=== PATIENT | female | born 1965 | race Caucasian/White ===

== ENCOUNTER 2018-07-11 08:06 | Observation (INO) | payer OTHER ==
[2018-07-11] MEDS ORDERED: ceFAZolin 2 GM/DEXTROSE 100 ML IV ONE (08:16)
[2018-07-11] MEDS ORDERED: PHENAZOPYRIDINE HCL 200 MG TAB PO ONE (08:16)
[2018-07-11] MEDS ORDERED: ACETAMINOPHEN 500 MG TAB PO ONE (08:16)
[2018-07-11] MEDS ORDERED: GABAPENTIN 300 MG CAP PO ONE (08:16)
[2018-07-11] MEDS ORDERED: LR 1,000 ML IV ONE (08:18)
--- NOTE | 2018-07-11 09:35 | PDHPUP ---
History & Physical Update H&P update statement: This history and physical update is based on an assessment of the patient which was completed after admission or registration (within 24 hours), but prior to the surgery/procedure. H&P update: H&P reviewed & patient examined, no change in patient's condition since H&P completed
[2018-07-11] MEDS ORDERED: BUPIVACAINE/EPI 0.5% 30 ML SDV ONE (09:48)
--- NOTE | 2018-07-11 09:52 | PDANEPAE ---
ANE Past Medical History - Cardiovascular History Hx Hypertension: No Hx Arrhythmias: No Hx Chest Pain: No Hx Coronary Artery / Peripheral Vascular Disease: No Hx CHF / Valvular Disease: No Hx Palpitations: No - Pulmonary History Hx COPD: No Hx Asthma/Reactive Airway Disease: No Hx Recent Upper Respiratory Infection: No Hx Oxygen in Use at Home: No Hx Sleep Apnea: No Sleep Apnea Screening Result - Last Documented: Negative - Neurologic History Hx Cerebrovascular Accident: No Hx Seizures: No Hx Dementia: No - Endocrine History Hx Diabetes: No - Renal History Hx Renal Disorders: Yes Renal History Comment: dribbling - Liver History Hx Hepatic Disorders: No - Neurological & Psychiatric Hx Hx Neurological and Psychiatric Disorders: No - Cancer History Hx Cancer: No - Congenital Disorder History Hx Congenital Disorders: No - GI History Hx Gastrointestinal Disorders: No - Other Health History Other Health History: wears glasses for reading and driving - Chronic Pain History Chronic Pain: Yes (left knee) - Surgical History Prior Surgeries: partial hysterectomy. breast surgery ANE Review of Systems Review of Systems: - Exercise capacity METS (RN): 4 METS ANE Patient History - Allergies Allergies/Adverse Reactions: Penicillins Allergy (Verified 07/05/18 10:26) Hives Sulfa (Sulfonamide Antibiotics) Allergy (Verified 07/05/18 10:26) Swelling/neck,face,throat - Home Medications Home Medications: Ascorbic Acid [Vitamin C 500 mg (*)] 500 mg PO DAILY 07/02/18 [Last Taken ] Hydrochlorothiazide [HCTZ (*)] 12.5 mg PO DAILY 07/02/18 [Last Taken 07/03/18] Ibuprofen [Motrin (*)] 200 mg PO DAILY PRN 07/02/18 [Last Taken 07/02/18] - NPO status NPO Since - Liquids (Date): 07/10/18 NPO Since - Liquids (Time): 21:00 NPO Since - Solids (Date): 07/10/18 NPO Since - Solids (Time): 21:00 - Smoking Hx Smoking Status: Former smoker - Family Anes Hx Family Hx Anesthesia Complications: none ANE Labs/Vital Signs - Vital Signs Blood Pressure: 141/96 Heart Rate: 64 Respiratory Rate: 16 O2 Sat (%): 95 Height: 157.48 cm Weight: 81.647 kg ANE Physical Exam - Airway Mallampati Score: Class 2 - ASA Status ASA Status: II ANE Anesthesia Plan Anesthesia Plan: general endotracheal anesthesia
[2018-07-11] MEDS ORDERED: MIDAZOLAM 2 MG/2 ML VIAL ONE (09:54)
[2018-07-11] MEDS ORDERED: PROPOFOL 200 MG/20 ML VIAL ONE (09:55)
[2018-07-11] MEDS ORDERED: fentaNYL 100 MCG/2 ML INJ ONE (09:55)
[2018-07-11] MEDS ORDERED: ROCURONIUM 50 MG/5 ML VIAL ONE ×2 (09:58→11:57)
[2018-07-11] MEDS ORDERED: METOCLOPRAMIDE 10 MG/2 ML VIAL ONE (09:58)
[2018-07-11] MEDS ORDERED: ONDANSETRON 4 MG/2 ML VIAL ONE (09:58)
[2018-07-11] MEDS ORDERED: SUGAMMADEX SODIUM 200 MG/2 ML VIAL IVP ONE (12:07)
--- NOTE | 2018-07-11 12:19 | POSTOPPROG ---
Post Op Note Date of Operation: 07/11/18 Surgeon: Mulugeta Cash Associate Counsel: Mansi Ibarra Anesthesiologist: Suzi Anesthesia: GET(General Endotracheal) Pre-op Diagnosis: Vaginal prolapse Post-op Diagnosis: Same Procedure: Robotic sacrocolpopexy, RSO, endo Findings: Uretrers function at end of case Inf/Abcess present in the surg proc area at time of surgery?: No EBL: Minimal Complications: None
[2018-07-11] MEDS ORDERED: ONDANSETRON 4 MG/2 ML VIAL IVP PRN (12:20)
[2018-07-11] MEDS ORDERED: HYDROmorphONE/DILAUDID 1 MG/ML INJ IVP PRN (12:20)
[2018-07-11] MEDS ORDERED: ONDANSETRON DISINTEGRATING 4 MG TAB PO PRN (12:20)
[2018-07-11] MEDS ORDERED: PROMETHAZINE HCL 25 MG/ML INJ IVP PRN ×2 (12:20→12:27)
[2018-07-11] MEDS ORDERED: fentaNYL 100 MCG/2 ML INJ IVP PRN (12:27)
[2018-07-11] MEDS ORDERED: LR 500 ML IV PRN (12:27)
[2018-07-11] MEDS ORDERED: DEXAMETHASONE 4 MG/ML VIAL IVP PRN (12:27)
[2018-07-11] MEDS ORDERED: NALOXONE HCL 0.4 MG/ML INJ IVP PRN (12:27)
[2018-07-11] MEDS ORDERED: ALBUTEROL 3 ML DEYVIAL IH PRN (12:27)
--- NOTE | 2018-07-11 12:28 | POSTANESTH ---
Post Anesthetic Evaluation Cardiovascular Status: Normal, Stable Respiratory Status: Normal, Stable Level of Consciousness/Mental Status: Can Participate in Eval Pain Control: Adequate, Prn Tx Ordered Nausea/Vomiting Control: Adequate, Prn Tx Ordered Complications Possibly Related to Anesthesia: None Noted
[2018-07-11] MEDS ORDERED: LR 1,000 ML IV SCH (12:30)
[2018-07-11] MEDS ORDERED: HYDROmorphONE/DILAUDID 2 MG/ML INJ ONE (12:44)
[2018-07-11] MEDS: HYDROmorphONE/DILAUDID 2 MG/ML INJ IVP PRN ×3 (12:51→13:29)
[2018-07-11] MEDS ORDERED: HYDROCODONE/APAP 5/325 TAB ONE (13:03)
[2018-07-11] MEDS: HYDROCODONE/APAP 5/325 TAB PO PRN ×2 (13:04→21:13)
--- NOTE | 2018-07-11 13:33 | GOP ---
DATE OF OPERATION: 07/11/2018 SURGEON: Mulugeta Cash MD [employer] DRIVER: Mansi Ibarra CFA ANESTHESIA: General. PREOPERATIVE DIAGNOSIS: 1. Cystocele. 2. Rectocele. 3. Vaginal vault prolapse. POSTOPERATIVE DIAGNOSIS: 1. Cystocele. 2. Rectocele. 3. Vaginal vault prolapse. 4. Endometriosis. 5. Right ovarian neoplasm. PROCEDURE PERFORMED: 1. Robotic-assisted laparoscopic sacrocolpopexy with mesh. 2. Repair of cystocele and rectocele. 3. Excision of endometriosis. 4. Right salpingo-oophorectomy. 5. Cystoscopy. 6. Right ureterolysis. FINDINGS: SPECIMENS: Right tube and ovary. ESTIMATED BLOOD LOSS: Scant. DESCRIPTION OF PROCEDURE: The patient was taken to the operating room where she was identified. General anesthesia was administered and found to be adequate. She was placed in the lithotomy position and prepared and draped in normal sterile fashion. A 1 cm infraumbilical incision was made with a scalpel. The Veress needle with CO2 gas flowing was advanced into the peritoneal cavity. The abdomen was then insufflated with carbon dioxide gas. The 12 mm trocar followed by the laparoscope were then inserted. The upper abdomen was unremarkable. Two lateral ports were placed on the right and 2 on the left under direct visualization. She was then placed in Trendelenburg position, and the da Buddy robot docked on the left side. The instruments were then brought into the abdominal cavity under direct visualization. The patient was noted to have a multicystic enlargement of the right ovary consistent with a serous cystadenoma. It was adhered to the pelvic sidewall overlying the right ureter. She had endometriosis in the posterior cul-de-sac as well as the right pelvic sidewall. To safely remove the ovary required a right ureterolysis. The peritoneum of the pelvic brim was incised. The ureter was gently dissected free and lateralized off the overlying peritoneum and ovary down to the bladder. Once this was accomplished, I was able to dissect the ovary free of the sidewall. The infundibulopelvic vessels were then cauterized and transected. The specimen was removed at the end of the case by enlarging the umbilical incision. A stent was placed in the vagina. The bladder was gently dissected off the anterior vaginal wall down to the level of bladder neck. The endometriosis was excised. The rectovaginal space was then entered, and the rectum dissected off the posterior vaginal wall down to the level of the perineal body. Measurements were then obtained and the mesh trimmed to size. The sigmoid colon was then retracted laterally. The peritoneum over the sacral promontory was incised, and the fat pad gently dissected off the anterior longitudinal ligament. The mesh was brought into the abdominal cavity. Three sutures of 4- 0 Weston-Prashant were used to attach the distal posterior mesh to the perineal body. Two additional rows of Weston-Prashant sutures were placed posteriorly. Three rows were placed anteriorly to suture the anterior mesh down to the level of the bladder neck and laterally to the paravaginal tissue. The stent was then removed. The sacral arm of the mesh was placed over the promontory and the tension adjusted. I then scrubbed back into the case to examine the vagina. The tension was further adjusted to resolve the cystocele and rectocele without undue tension on the vagina. Two sutures of 2-0 Weston-Prashant were used to attach the sacral arm of the mesh to the anterior longitudinal ligament at the level of the upper 1st sacral vertebral body. The excess mesh was then trimmed. 3-0 V -Loc 90 suture was used to close the peritoneum over the entire mesh. The robot was then undocked. The specimen was removed through the umbilicus. The fascia was closed with 0 Vicryl, skin with 4-0 Monocryl. Cystoscopy was then performed. Both ureters had vigorous jets of urine. There was no evidence of bladder nor urethral injury seen. No mesh nor suture was seen within the bladder or urethra. No obvious pathology was seen. A transverse incision was then made along the perineal body. The posterior vaginal epithelium was undermined with the Metzenbaum scissors and incised sagittally. The epithelium was then gently dissected off the underlying rectovaginal connective tissue. The connective tissue was plicated in the midline with 0 Vicryl. The rectovaginal septum was reattached to the perineal body with 0 Vicryl suture. The excess epithelium was then trimmed and closed with a running 2-0 Vicryl suture. Vaginal packing was then placed. Anesthesia was reversed. The patient taken the PACU awake, in stable condition. COMPLICATIONS: None. DISPOSITION: Patient stable to PACU. /[id number]/MODL MTDD
[2018-07-11] MEDS: GABAPENTIN 300 MG CAP PO SCH ×2 (19:03→21:14)
[2018-07-11] MEDS: SIMETHICONE 80 MG TAB CHEW PO SCH ×3 (19:04→21:14)
[2018-07-11] MEDS: KETOROLAC 30 MG/1 ML SDV IVP SCH (19:11)
[2018-07-11] MEDS: DOCUSATE SODIUM 100 MG CAP PO SCH (21:14)
[2018-07-12] MEDS: KETOROLAC 30 MG/1 ML SDV IVP SCH ×2 (01:05→05:46)
[2018-07-12 07:43] VITALS: BP 105/61
--- NOTE | 2018-07-12 08:09 | GDS ---
DISCHARGE DIAGNOSES: 1. Cystocele. 2. Rectocele. 3. Vaginal vault prolapse. 4. Endometriosis. PROCEDURES: 1. Robotic-assisted laparoscopic sacral colpopexy with mesh. 2. Repair of cystocele and rectocele. 3. Excision of endometriosis. 4. Right salpingo-oophorectomy. 5. Cystoscopy. HISTORY: The patient is a 53-year-old female, who developed vaginal prolapse. She was taken to the operating room on 07/11/2018, where she underwent the above-mentioned procedures without complication s. HOSPITAL COURSE: Her postoperative course was uneventful. The morning after surgery she was ambulat ing, voiding, and tolerating a general diet. She was discharged home on postoperative day #1 in good condition. Medications included ibuprofen and Tyro for pain. She was to follow up in the office 2 weeks after discharge. /[id number]/MODL
[2018-07-12] MEDS: SIMETHICONE 80 MG TAB CHEW PO SCH (08:29)
[2018-07-12] MEDS: GABAPENTIN 300 MG CAP PO SCH (08:30)
[2018-07-12] MEDS: DOCUSATE SODIUM 100 MG CAP PO SCH (08:30)
[2018-07-12] MEDS: HYDROCODONE/APAP 5/325 TAB PO PRN (08:33)
[2018-07-12] MEDS ORDERED: HYDROCHLOROTHIAZIDE 12.5 MG CAP PO SCH (09:00)
== END 2018-07-12 10:40 | disposition home or self-care (01) ==
LOC: F3N 08:06 → F3E 14:17
PROVIDERS: ADMIT Obstetrics & Gynecology; ATTEND Obstetrics & Gynecology
DX: N81.10 Cystocele, unspecified (principal); N81.6 Rectocele; N80.9 Endometriosis, unspecified
CPT/HCPCS: 57260; 57425; 58559; 58661; G0378; C1763; J0690; J1170; J1885; J2250; J2405; J2704; J2765; J3010